=== PATIENT | female | born 1985 | race Caucasian/White ===

== ENCOUNTER 2021-09-23 09:30 | Outpatient (CLI) | payer OTHER, SELFPAY ==
[2021-09-23 10:04] LABS: Alanine Aminotransferase 11 U/L (6-35); Albumin Level 4.3 g/dL (3.5-5.1); Alkaline Phosphatase 44 U/L (38-126); Anion Gap 5 mmol/L (8-16); Aspartate Amino Transferase 19 U/L (14-36); Basophils Absolute Auto 0.1 K/mm3 (0.0-0.1); Bilirubin,Total 0.8 mg/dL (0.2-1.3); Blood Urea Nitrogen 10 mg/dL (7-17); Calcium 8.1 mg/dL (8.4-10.2); Carbon Dioxide 26 mmol/L (22-30); Chloride 106 mmol/L (98-107); Eosinophils Absolute Auto 0.1 K/mm3 (0-0.3); Eosinophils Percent Auto 2.3 % (0-4.4); Estimated Glomerular Filt Rate > 60; Glucose 93 mg/dL (65-110); Hematocrit 37.4 % (37.0-47.0); Hemoglobin 12.1 g/dL (12.0-15.0); Immature Granulocyte Absolute 0.02 K/mm3 (0.00-0.031); Immature Granulocyte Percent A 0.3 % (0-0.5); Lymphocytes Percent Auto 24.8 % (18.3-44.2); Mean Corpuscular HGB Conc 32.4 g/dl (32-36); Mean Corpuscular Volume 92.8 fl (80-100); Mean Platelet Volume 9.2 fl (7.4-10.4); Monocytes Absolute Auto 0.4 K/mm3 (0.1-0.6); Monocytes Percent Auto 7.3 % (2.6-8.5); Neutrophils Absolute Auto 3.9 K/mm3 (1.3-6.7); Neutrophils Percent Auto 64.3 % (45.5-73.1); Platelet Count Result 221 k/mm3 (150-375); Potassium 3.9 mmol/L (3.4-5.0); Red Blood Count 4.03 M/mm3 (4.2-5.4); Red Cell Distribution Width 13.5 % (11.5-14.5); Sodium 137 mmol/L (137-145)
[2021-09-23 10:33] LABS: Thyroid Stimulating Hormone 0.907 uIU/mL (0.465-4.680)
[2021-09-23 11:15] LABS: Folic Acid 19.2 ng/mL (2.76->20)
== END 2021-09-23 09:31 | disposition home or self-care (01) ==
LOC: ANHLAB 09:32
PROVIDERS: PCP Family Medicine; Visit Provider Family Medicine
DX: R00.2 Palpitations (principal)
CPT/HCPCS: 36415; 80053; 82607; 82746; 84443; 85025

== ENCOUNTER 2022-06-11 09:12 | Emergency (ER) | payer OTHER, SELFPAY ==
[2022-06-11 09:22] VITALS: BP 97/64; PULSE 111; RESP 16; TEMP 36.9; O2SAT 100
--- NOTE | 2022-06-11 09:28 | ED.URI ---
HPI - URI/Sore Throat General Chief Complaint: Upper Respiratory Infection Stated Complaint: SORE THROAT/FEVER/BODY ACHES Time Seen by Provider: 06/11/22 09:28 Source: patient Mode of arrival: ambulatory Limitations: no limitations History of Present Illness HPI Narrative: 36-year-old female presents with complaint of sore throat, headache, body aches, fatigue starting last night. Reports this morning her temperature was 102? F. patient take antipyretics prior to arrival. Denies nausea vomiting diarrhea. No chest pain or shortness of breath. All systems reviewed and negative except as noted above. Related Data Allergies Allergy/AdvReac Type Severity Reaction Status Date / Time azithromycin Allergy Mild rash Verified 09/23/21 08:17 Review of Systems Review of Systems: CONSTITUTIONAL: Reports fever, chills, or sweats. EYES: Denies visual changes, redness, or discharge. ENT: Denies rhinorrhea, congestion. Reports sore throat. Denies otalgia. CARDIOVASCULAR: Denies chest pain, palpitations, or edema. RESPIRATORY: Denies cough or dyspnea. GASTROINTESTINAL: Denies abdominal pain, nausea, vomiting, or diarrhea. GENITOURINARY: Denies dysuria or hematuria. SKIN: Denies rash or itching. MUSCULOSKELETAL: Denies back pain, joint pain. Reports myalgia. NEUROLOGIC: Denies headache, numbness, or weakness. PSYCHIATRIC: Denies anxiety or depression. All other systems reviewed are negative, except as documented in HPI. [facility] Family History Family History Mother Patient's mother is Social History Social History (Updated 09/23/21 @ 08:24 by Amber Whittington) Social History: Smoking status: Never smoker Second hand tobacco smoke exposure: No Alcohol intake: current Alcohol use details: rarely Substance use: never Substance use type: does not use Living arrangements: with family Occupation/Education: occupation Gender identity (if verbalized by the patient): Female Sexual Orientation (if Verbalized by the Patient): Straight or Heterosexual Comments At time of signature, agree with nursing past medical, surgical, social and family history. There is no relevant family history pertinent to the presenting complaint. Exam Narrative: GENERAL: This is a well-nourished, well-developed patient, in no apparent distress. HEAD: normocephalic, atraumatic. EYES: PERRL. Sclera clear/white. Vision is grossly intact. EARS: External ears normal, auditory canals clear and without drainage, TMs normal without perforation. Hearing grossly intact. NOSE: External nose normal with no obvious nasal discharge, nares without redness, no rhinorrhea. THROAT: Mucous membranes moist, erythema posterior pharynx. No exudates or tonsillar swelling. NECK: Neck supple, non-tender without lymphadenopathy, masses or thyromegaly. CARDIOVASCULAR: Regular rate and rhythm without murmurs, gallops, or rubs. RESPIRATORY: Clear to auscultation. Breath sounds equal bilaterally. No wheezes, rales, or rhonchi. SKIN: warm, Dry, intact with no suspicious lesions or rash, good texture and turgor. NEURO: awake, alert, and oriented to person, place and time. There were no obvious focal neurologic abnormalities. EXTREMITIES: No joint tenderness, effusion, or edema noted. Course Course Level of Care: Express Care Visit Vital Signs Vital signs: Vital Signs Temperature 36.9 C 06/11/22 09:22 Pulse Rate 111 H 06/11/22 09:22 Respiratory Rate 16 06/11/22 09:22 Blood Pressure 97/64 L 06/11/22 09:22 Pulse Oximetry 100 06/11/22 09:22 Temperature 36.9 C 06/11/22 09:22 Pulse Rate 111 H 06/11/22 09:22 Respiratory Rate 16 06/11/22 09:22 Blood Pressure 97/64 L 06/11/22 09:22 Pulse Oximetry 100 06/11/22 09:22 Reviewed MDM - URI/Sore Throat MDM Narrative Medical decision making narrative: Patient is aware of diagnosis, understands and agrees to
== END 2022-06-11 09:35 | disposition home or self-care (01) ==
PROVIDERS: Emergency Provider Nurse Practitioner Family; PCP Family Medicine
DX: J02.0 Streptococcal pharyngitis (principal)
CPT/HCPCS: 87880; 99213; G0463

== ENCOUNTER 2023-02-23 17:25 | Outpatient (CLI) | payer OTHER, SELFPAY ==
--- NOTE | ~2023-02-23 | XR_ITS ---
XR chest 2V DATE: 02/23/2023 17:37 INDICATION: Cough TECHNIQUE: PA and lateral views COMPARISON: May 18, 2012 two-view chest FINDINGS: Normal heart size. No hilar or mediastinal enlargement. No pulmonary infiltrate or consolid ation, pleural effusion or pulmonary vascular congestion or pneumothorax. IMPRESSION: Negative Reviewed, dictated and finalized at location L. HYSICAL PARTY CHIEF IMPRESSION: Negative
== END 2023-02-23 17:26 | disposition home or self-care (01) ==
PROVIDERS: PCP Family Medicine; Visit Provider Physician Assistant
DX: R05.9 Cough, unspecified (principal)
CPT/HCPCS: 71046

== ENCOUNTER 2024-06-06 09:17 | Emergency (ER) | payer BC, SELFPAY ==
[2024-06-06 09:29] VITALS: BP 99/73; PULSE 106; RESP 16; TEMP 36.9; O2SAT 98
--- NOTE | 2024-06-06 09:47 | ED_ITS ---
HPI - URI/Sore Throat General Chief Complaint: Upper Respiratory Infection Stated Complaint: Upper Respiratory Symptoms Source: patient and RN notes reviewed Mode of arrival: ambulatory Limitations: no limitations History of Present Illness HPI Narrative: [age] year presented for complaint malaise, low-grade fever, and nasal congestion, ear pain, for about 2 weeks. States that the onset she had a GI illness that lasted a few days with nausea vomiting diarrhea which is resolved. Taking DayQuil, Mucinex and Tylenol. Denies shortness of breath, wheezing, vomiting, diarrhea abdominal pain or lethargy. MD elicited complaint: cough Related Data Home Medications ?Medication ?Instructions ?Recorded ?Confirmed ?Last Taken ?Type fluorouracil 5 % topical cream applic topical 06/06/24 Unknown History Allergies Allergy/AdvReac Type Severity Reaction Status Date / Time azithromycin Allergy Mild rash Verified 06/06/24 09:48 Review of Systems Review of Systems: per [facility] Past Medical History Medical History (Updated 06/06/24 @ 09:56 by Tara Duggan, ELECTRIC MOTOR TESTER ASSEMBLER) Palpitations Cough Acute maxillary sinusitis Family History Family History Mother Patient's mother is Social History Social History (Updated 03/19/23 @ 08:16 by Amber Whittington) Social History: Smoking status: Never smoker Second hand tobacco smoke exposure: No Alcohol intake: current Alcohol use details: rarely Substance use: never Substance use type: does not use Lack of Transportation: No Lack of Food: Never True Current Housing: I Have Housing Concerned About Future Housing: No Difficulty Paying Gas/Electric Bills: No Difficulty Paying for Meds: No Currently Unemployed: No Education: Don't Know Difficulty w/ Childcare or Family Care: No Living arrangements: with family Occupation/Education: occupation Gender identity (if verbalized by the patient): Female Sexual Orientation (if Verbalized by the Patient): Straight or Heterosexual Exam Narrative: GENERAL: Ill-appearing, nontoxic no acute distress. EYES: PERRLA, conjunctivae clear ENT: Mucous membranes moist. TM pearly neves with dull light reflex bilaterally; no tragal tenderness. Oropharynx not erythematous without lesions or exudate, no drooling, no hoarseness, no trismus, uvula midline. No tripod positioning, muffled voice, soft palate or pharyngeal wall bulging NECK: Supple. No lymphadenopathy CHEST: Clear to auscultation, breath sounds equal. No wheezing, rhonchi, rales, or stridor. No respiratory distress, speaks in full sentences. HEART: Regular rate and rhythm. ABD: soft, flat, nontender SKIN: Warm, dry, no rash. NEURO: Alert and oriented x3. PSYCH: Normal mood and affect Course Course Emergency Course: Patient is aware of diagnosis, understands and agrees to treatment plan. Anticipatory guidance given. Patient agrees to follow-up as directed and is aware of reasons to seek care at the emergency department. Portions of this record may have been created with voice recognition software Level of Care: Express Care Visit Vital Signs Vital signs: Vital Signs Temperature 98.5 F 06/06/24 09:29 Pulse Rate 106 H 06/06/24 09:29 Respiratory Rate 16 06/06/24 09:29 Blood Pressure 99/73 L 06/06/24 09:29 Pulse Oximetry 98 06/06/24 09:29 Temperature 98.5 F 06/06/24 09:29 Pulse Rate 106 H 06/06/24 09:29 Respiratory Rate 16 06/06/24 09:29 Blood Pressure 99/73 L 06/06/24 09:29 Pulse Oximetry 98 06/06/24 09:29 reviewed MDM - URI/Sore Throat MDM Narrative Medical decision making narrative: Discussed physical exam findings. Advised supportive measures and signs/symptoms to go to the ER. Pt is appropriate for outpt treatment and f/u. Differential Diagnosis Differential diagnosis: Likely upper respiratory infection, otitis media, sinusitis, viral infection, bronchitis and pharyngitis Discharge Plan Discharge Clinical Impression: Upper respiratory infection Patient Disposition: Home, Self-Care Condition: Stable Instructions: Antibiotic Form, Upper Respiratory Infection (ED) Additional Instructions: Recommend Flonase spray and Zyrtec (or Claritin/Antonina) over the counter Cough syrup may cause drowsiness; avoid driving or take it at night time. Tylenol 1000mg every 8 hours as needed for pain Symptomatic treatment includes: rest, fluids, and increase humidity of the air at home. Follow up with your primary care provider in 1 week. Go to the ER for worsening symptoms or concerns. Patient Language: Frisian Prescriptions: New amoxicillin-pot clavulanate 875-125 mg tablet 1 tablet PO Q12H 7 Days Qty: 14 0RF No Action fluorouracil 5 % cream TOPICAL Flovent Diskus 50 mcg/actuation blister with device 2 inh inhalation Q12H Qty: 60 0RF Follow-up/Referrals: PHYSICIAN,MANAGER ANIMAL [Primary Care Provider] - Time of Disposition: 09:56
== END 2024-06-06 09:57 | disposition home or self-care (01) ==
PROVIDERS: Emergency Provider Nurse Practitioner Family
DX: J06.9 Acute upper respiratory infection, unspecified (principal)
CPT/HCPCS: 99213; G0463

== ENCOUNTER 2024-09-13 15:42 | Outpatient (CLI) | payer BC, SELFPAY ==
--- OUTSIDE RECORDS SUMMARY | 2024-09-13 15:46 | XMS_ITS | Clinical Summary ---
Author Organization [facility] Address [address] [place] [address] Care Team Providers Care Footwear Sales Leader Name Role Phone Miscellaneous, Not In File Primary Care Provider Unavailable Allergies No known active allergies Medications albuterol HFA (PROVENTIL HFA,VENTOLIN HFA) 90 mcg/actuation inhaler inhale 2 puff by inhalation route every 4 - 6 hours as needed 0 3 Active montelukast (SINGULAIR) 4 mg granules in packet 4 mg. 0 3 Active Additional Information Patient not taking.Reported on 08/22/2024 loratadine (CLARITIN) 5 mg/5 mL syrup take 10 milliliter (10MG) by oral route every day 0 3 Active levonorgestrel- ethinyl estrad (AVIANE) 0.1-20 mg-mcg per tablet take 1 tablet by oral route every day 0 3 Active Additional Information Patient not taking.Reported on 08/22/2024 folic acid (FOLVITE) 1 mg tablet take 1 tablet by oral route every day 90 9 7 Active Additional Information Patient not taking.Reported on 08/22/2024 enoxaparin (LOVENOX) 40 mg/0.4 mL syringe inject 0.4 milliliter by subcutaneous route every day 30 Syringe 5 7 Active Additional Information Patient not taking.Reported on 08/22/2024 Active Problems Problem Noted Date Diagnosed Date Cervico-occipital neuralgia 07/10/2016 Overview (07/17/2016): Occipital neuralgia Encounters Date Type Department Care Team Description 08/22/2024 6:45 PM CDT Office Visit [facility] at [address] [address] Tracee Snider NP Jaw pain, non-TMJ (Primary Dx) from Last 3 Months Family History Medical History Relation Name Comments Stroke Other Family history of Stroke; Relation Name Status Comments Other Social History Tobacco Use Types Packs/Day Years Used Date Smoking Tobacco: Never Assessed Alcohol Use Standard Drinks/Week Comments Yes 0 (1 standard drink = 0.6 oz pur e alcohol) Comments Unknown Sex and Gender Information Value Date Recorded Sex Assigned at Not on file Legal Sex Female 11:33 PM ELECTRICAL FOREMAN Gender Identity Not on file Sexual Orientation Not on file Obstetrics History Last Filed Vital Signs Vital Sign Reading Time Taken Comments Blood Pressure 105/73 08/22/2024 6:49 PM CDT Pulse 84 08/22/2024 6:49 PM CDT Temperature 36.8 C (98.2 F) 08/22/2024 6:49 PM CDT Respiratory Rate 16 08/22/2024 6:49 PM CDT Oxygen Saturation 99% 08/22/2024 6:4 9 PM CDT Inhaled Oxygen Concentration - - Weight 59 kg (130 lb) 08/22/2024 6:49 PM CDT Patient reports Height 172.7 cm (5' 8) 07/10/2016 1:51 PM CDT Body Mass Index 19.77 07/10/2016 1:51 PM CDT Plan of Treatment Health Maintenance Due Date Last Done Comments Cervical Cancer Screening 1985 Depression Screening 1985 Varicella Vaccines (1 of 2 - 13+ 2-dose series) 1998 Hepatitis B Screening 07/15/2003 Regular Well Visit/Exam 18-64 07/15/2003 Pneumococcal vaccine <65 (1 of 2 - PCV) 2004 Covid-19 Vaccine ( season) 2023 01/30/2021, 04/17/2020, 03/27/2020 DTaP/Tdap/Td Vaccine (3 - Td or Tdap) 06/13/2030 06/13/2020, 12/17/2016 Hepatitis C Screening Completed 04/01/2016 Influenza Vaccine Completed 01/05/2024, , 01/05/2022, Additional history exists HPV Vaccines Aged Out No longer eligi ble based on patient's age to complete this topic Procedures Procedure Name Priority Date/Time Associated Diagnosis Comments SERUM HEPATITIS C AB Routine 04/01/2016 3:01 PM ELECTRICAL FOREMAN from Last 3 Months or Most Recently Relevant to Health Maintenance Results * Serum Hepatitis C ab (04/01/2016 3:01 PM ELECTRICAL FOREMAN) HCV ab Non-Reacti ve Non-Reacti ve CDR HISTORICAL RESULTS Serum 04/01/2016 3:01 PM ELECTRICAL FOREMAN us Ruma Moore MD LAB BLOOD ORDERABLES F inal Result CDR HISTORICAL RESULTS from Last 3 Months or Most Recently Relevant to Health Maintenance Insurance [facility] [employer] Care Teams Footwear Sales Leader Relationship Specialty Start Date End Date Miscellaneous, Not In File PCP - General 08/25/16
--- OUTSIDE RECORDS SUMMARY | 2024-09-13 15:46 | XMS_ITS | Clinical Summary ---
Author Organization [facility] Address [address] [place] [address] Phone Care Team Providers Care Geomatics Professor Name Role Phone Tyra Bill MD Primary Care Provider [phone] Allergies No known active allergies Medications fluticasone propionate (FLONASE BOTH NOSTRIL) Administer 2 Sprays in each nostril daily. Active guaiFENesin (MUCINEX) 600 mg Extended Release Biphasic tablet Take 1 Tablet (600 mg) by mouth every 12 hours. 30 Tablet 07/17/2020 6:54 PM CDT 1 Active albuterol HFA 90 mcg inhaler Take 2 Puffs by inhalation every 6 hours as needed for Shortness of Breath. 18 Gram 1 07/17/2020 6:54 PM CDT 1 Active acetaminophen (TYLENOL) 325 mg tablet Take 2 Tablets (650 mg) by mouth every 6 hours as needed for Pain. 60 Tablet 08/20/2020 10:12 AM CDT 1 Active ibuprofen (MOTRIN) 600 mg tablet Take 1 Tablet (600 mg) by mouth every 6 hours as needed for pain secondary to inflammation. 60 Tablet 08/20/2020 10:12 AM CDT 1 Active Breast Pump DeviceIndicatio ns:Lactating mother Use as directed 1 Each 1 Active Active Problems Problem Noted Date Diagnosed Date Mirena IUD 02/05/22 02/05/2022 Mild intermittent asthma with acute exacerbation 07/16/2020 Heterozygous factor V Leiden mutation Resolved Problems Problem Noted Date Diagnosed Date Resolved Date Normal labor 08/18/2020 10/17/2020 5/9 Juwan - circ done, Factor V - Lovenox, Asthma 08/18/2020 10/17/2020 Normal intrauterine pregnanc y in third trimester 07/17/2020 08/08/2020 Threatened labor at term 02/12/201701/2018 MTHFR mutation 04/20/2019 Acute tracheobronchitis 07/0 11/2020 Immunizations Immunization Administration Dates Next Due (ADACEL/BOOSTRIX)(10 YR UP) TDAP VACCINE, 0.5ML, IM 06/13/2020,12/17/2016 (PFIZER)(12 YR UP) COVID-19 VACCINE - EMERGENCY USE AUTHORIZATION, MRNA, [id number](PF) 30 MCG/0.3 ML IM SUSP 04/17/2020,03/27/2020 INFLUENZA VACCINE QUADRIVALE NT 3 YR UP PF IM 01/11/2016,01/04/2015 Influenza Seasonal Unspecifi ed Formulation IM 01/05/2024,01/06/2023,01/05/2022,2020,12/19/2019,12/17/2018,12/31/2017,0 01/05/2017 Influenza Vaccine Quad Split 3+ Yrs Pf Im 01/14/2014 Family History Medical History Relation Name Comments Unknown Father COPD Maternal Grandfather Other Maternal Grandmother pulmona ry fibrosis Stroke Maternal Grandmother Aneurysm Mother Stroke Mother Blood Disorder Sister factor v Healthy Son 1 owens Healthy Son 2 Juwan Breast Cancer Neg Hx Colon Cancer Neg Hx Ovarian Cancer Neg Hx Relation Name Status Comments Father Maternal Grandfather Maternal Grandmother Mother Sister Alive Son 1 owens Alive Son 2 Juwan Alive Social History Tobacco Use Types Packs/Day Years Used Date Smoking Tobacco: Never Smokeless Tobacco: Never Tobacco Cessation:Counseling Given: Not Answered Alcohol Use Standard Drinks/Week Comments Yes 0 (1 standard drink = 0.6 oz pur e alcohol) on occasion Comments No Sex and Gender Information Value Date Recorded Sex Assigned at Not on file Legal Sex Female 12:08 PM CDT Gender Identity Not on file Sexual Orientation Not on file 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 Not on file Not on file Not on file Last Filed Vital Signs Vital Sign Reading Time Taken Comments Blood Pressure 103/65 02/23/2023 4:07 PM BUSINESS PROCESS SPECIALIST Pulse 88 02/23/2023 4:07 PM BUSINESS PROCESS SPECIALIST Temperature 36.9 C (98.4 F) 02/23/2023 12:59 PM BUSINESS PROCESS SPECIALIST Respiratory Rate 18 02/05/2022 9:37 AM CDT Oxygen Saturation 98% 02/23/2023 4:07 PM BUSINESS PROCESS SPECIALIST Inhaled Oxygen Concentration - - Weight 60.3 kg (133 lb) 02/23/2023 12:59 PM BUSINESS PROCESS SPECIALIST Height 172.7 cm (5' 8) 02/23/2023 12:59 PM BUSINESS PROCESS SPECIALIST Body Mass Index 20.22 02/23/2023 12:59 PM BUSINESS PROCESS SPECIALIST Plan of Treatment Health Maintenance Due Date Last Done Comments HEPATITIS B VACCINES (1 of 3 - 19+ 3-dose series) 2004 PAP SMEAR 10/18/2023 10/17/2020, 03/13, 04/01/2016 COVID-19 Vaccine ( season) 2023 04/17/2020, 03/27/2020 CERVICAL CANCER SCREENING 10/17/2025 HPV/Cotest (21-29) 10/17/2025 10/17/2020, 04/01/2016 HPV/Cotest (30-65) 10/17/2025 10/17/2020, 04/01/2016 DTAP/TDAP/TD VACCINES (3 - Td or Tdap) 06/13/2030 06/13/2020, 12/17/2016 INFLUENZA VACCINE Completed 01/05/2024, , 01/05/2022, Additional history exists HPV VACCINES Aged Out No longer eligi ble based on patient's age to complete this topic Procedures Procedure Name Priority Date/Time Associated Diagnosis Comments CERV/VAG CYTO AGE BASED SCREEN PAP Routine 10/17/2020 3:22 PM CDT Routine follow-up from Last 3 Months or Most Recently Relevant to Health Maintenance Results * CERV/VAG CYTO AGE BASED SCREEN PAP (10/17/2020 3:22 PM CDT) COMMENT (PAP): [facility] Comment: This order for age-based cervical cancer and STI screening follows ACOG guidelines(PB 168, 140, SMQ447). See individual assays for performing site location. CLINICAL INFORMATION [facility] Comment:Routine exam LAST MENSTRUAL PERIOD [facility] Comment:RECENT PREG PREV PAP: [facility] Comment:INFORMATION NOT PROV IDED PREV BX: [facility] Comment:INFORMATION NOT PROV IDED SOURCE [facility] Comment:Endocervix ADEQUACY: [facility] Comment: Satisfactory for evaluation. Endocervical/transformation zone component present. PAP INTERP [facility] Comment:Negative for intraep ithelial lesion or malignancy. COMMENT [facility] Comment: This Pap test has been evaluated with computer assisted technology. VAULT MANAGER: [facility] Comment: YQ, CT(ASCP) CT screening location: [place] [address] [place] [address] EXPLANATORY NOTE [facility] Comment: EXPLANATORY NOTE: The Pap is a screening test for cervical cancer. It is not a diagnostic test and is subject to false negative and false positive results. It is most reliable when a satisfactory sample, regularly obtained, is submitted with relevant clinical findings and history, and when the Pap result is evaluated along with historic and current clinical information. HPV E6/E7 Not Detected Not Detected [facility] Comment: Methodology: City Attorney-Mediated Amplification This assay detects E6/E7 viral messenger RNA (mRNA) from 14 high-risk HPV types (16,18,31,33,35,39,45,51,52,56,58,59,66,68). The analytical performance characteristics of this assay have been determined by [facility]. The modifications have not been cleared or approved by the FDA. This assay has been validated pursuant to the CLIA regulations and is used for clinical purposes. For additional information, please refer to http://education.Genius [employer]ends.Gradalis/faq/XPE232u4 (This link if provided for information/ educational purposes only.) Test Performed at: [facility] [address] [place] [address] Cameron Nava D.O., MPH SL Genital SWAB OF ENDOCERVIX / Unknown 10/17/2020 3:22 PM CDT 10/18/2020 3:09 AM CDT Amanda Maza DO PATHOLOGY/CYTOLOGY ORDERABLES Final Result [facility] [address] [place] [address] from Last 3 Months or Most Recently Relevant to Health Maintenance Insurance [facility] RX [employer] (INTERNAL) [facility] Internal Plans RX [employer] Express Advance Directives For more information, please contact: [phone] * Full Code (Latest Code Status on File) Date Activated Date Inactivated Comments 07/16/2020 5:01 PM 07/17/2020 8:58 PM * Full Code Date Activated Date Inactivated Comments 02/13/2017 7:34 AM 02/14/2017 5:48 PM * Full Code Date Activated Date Inactivated Comments 02/12/2017 5:09 PM 02/13/2017 4:36 AM Care Teams Geomatics Professor Relationship Specialty Start Date End Date Tyra Bill MD PCP - General Family Practice 02/04/17
--- OUTSIDE RECORDS SUMMARY | 2024-09-13 15:46 | XMS_ITS | Referral Summary ---
Author Organization [facility] Address [address] [place] [address] Care Team Providers Care System Consultant Name Role Phone Miscellaneous, Not In File Primary Care Provider Unavailable Encounters Date Type Department Care Team Description 08/22/2024 6:45 PM CDT Office Visit [facility] at [address] [address] Tracee Snider NP Jaw pain, non-TMJ (Primary Dx) from Last 3 Months Allergies No known active allergies Medications albuterol [...] Cervico-occipital neuralgia 07/10/2016 Overview (07/17/2016): Occipital neuralgia Social History Tobacco Use Types Packs/Day Years Used Date Smoking Tobacco: Never Assessed Alcohol Use Standard Drinks/Week Comments Yes 0 (1 standard drink = 0.6 oz pur e alcohol) Comments Unknown Sex and Gender Information Value Date Recorded Sex Assigned at Not on file Legal Sex Female 11:33 PM SHIPPING & RECEIVING LEAD Gender Identity Not on file Sexual Orientation Not on file Last Filed Vital Signs [...] 07/10/2016 1:51 PM CDT Plan of Treatment Not on file Procedures Procedure Name Priority Date/Time Associated Diagnosis Comments SERUM HEPATITIS C AB Routine 04/01/2016 3:01 PM SHIPPING & RECEIVING LEAD from Last 3 Months or Most Recently Relevant to Health Maintenance Results * Serum Hepatitis C ab (04/01/2016 3:01 PM SHIPPING & RECEIVING LEAD) HCV ab Non-Reacti ve Non-Reacti ve CDR HISTORICAL RESULTS Serum 04/01/2016 3:01 PM SHIPPING & RECEIVING LEAD us Ruma Moore MD LAB BLOOD ORDERABLES F inal Result CDR HISTORICAL RESULTS from Last 3 Months or Most Recently Relevant to Health Maintenance Insurance [facility] [employer] Care Teams System Consultant Relationship Specialty Start Date End Date Miscellaneous, Not In File PCP - General 08/25/16
--- OUTSIDE RECORDS SUMMARY | 2024-09-13 15:46 | XMS_ITS | Clinical Summary ---
Author Organization [facility] [employer] Address [address] [place] [address] Care Team Providers Care School Leader Name Role Phone Tyra Bill MD Primary Care Provider + Source Comments [facility] [employer],non-owned Affiliates and Associated Physician Practices is amultiple site organization consisting of ambulatory clinics and hospital sitesin [place], [place], [place] and [place]. This disclosure is being madepursuant to the Care Everywhere program and may not contain all information available regarding this patient. Last updated 17.[facility] [employer] Allergies No known active allergies Medications * Be aware that medications may not be up to date on this document. Alwaysverify current medications with the patient. No known medications Social History Tobacco Use Types Packs/Day Years Used Date Smoking Tobacco: Never Smokeless Tobacco: Never Comments Unknown Sex and Gender Information Value Date Recorded Sex Assigned at Not on file Legal Sex Female 6:32 PM [employer]PER[employer] Gender Identity Not on file Sexual Orientation Not on file Last Filed Vital Signs Vital Sign Reading Time Taken Comments Blood Pressure 92/58 05/05/2017 9:38 AM [employer] SUPERVISOR Pulse 83 05/05/2017 9:38 AM [employer] SUPERVISOR Temperature 36.7 C (98.1 F) 05/05/2017 9:38 AM [employer] SUPERVISOR Respiratory Rate 16 05/05/2017 9:38 AM [employer] SUPERVISOR Oxygen Saturation 99% 05/05/2017 9:38 AM [employer] SUPERVISOR Inhaled Oxygen Concentration - - Weight 54.4 kg (120 lb) 05/05/2017 9:38 AM [employer] SUPERVISOR Height 170.2 cm (5' 7) 05/05/2017 9:38 AM [employer] SUPERVISOR Body Mass Index 18.79 05/05/2017 9:38 AM [employer] SUPERVISOR Plan of Treatment Health Maintenance Due Date Last Done Comments HIV SCREENING 2000 HEPATITIS C SCREENING 07/10/2003 DTAP/TDAP/TD VACCINES (1 - Tdap) 2004 HEPATITIS B VACCINE (1 of 3 - 19+ 3-dose series) 2004 COVID-19 VACCINE (1 - 2023-2 5 season) 2023 DEPRESSION SCREENING 04/12/2024 INFLUENZA VACCINE (Season Ended) 2024 ZOSTER VACCINE (1 of 2) 07/15/2035 HIB VACCINE Aged Out No longer eligi ble based on patient's age to complete this topic HPV VACCINE Aged Out No longer eligi ble based on patient's age to complete this topic MENINGOCOCCAL (Group B) VACC INE SHARED DECISION-MAKING Aged Out No longer eligibl e based on patient's age to complete this topic MENINGOCOCCAL GROUPS A/C/Y/W VACCINE Aged Out No longer eligible b ased on patient's age to complete this topic PNEUMOCOCCAL VACCINE Aged Out No long er eligible based on patient's age to complete this topic Insurance [facility] Care Teams School Leader Relationship Specialty Start Date End Date Tyra Bill MD [address] [place] [address] PCP - General Family Medicine 05/05/17
[2024-09-13 16:37] LABS: Basophils Absolute Auto 0.1 K/mm3 (0.0-0.1); Basophils Percent Auto 1.1 % (0.2-1.2); Eosinophils Absolute Auto 0.1 K/mm3 (0-0.3); Eosinophils Percent Auto 1.8 % (0-4.4); Hematocrit 39.7 % (37.0-47.0); Hemoglobin 12.9 g/dL (12.0-15.0); Immature Granulocyte Absolute 0.03 K/mm3 (0.00-0.031); Immature Granulocyte Percent A 0.4 % (0-0.5); Lymphocytes Absolute Auto 1.73 K/mm3 (0.9-3.2); Lymphocytes Percent Auto 24.3 % (18.3-44.2); Mean Corpuscular HGB Conc 32.5 g/dl (32-36); Mean Corpuscular Hemoglobin 30.2 pg (26-34); Mean Platelet Volume 9.4 fl (7.4-10.4); Monocytes Absolute Auto 0.4 K/mm3 (0.1-0.6); Monocytes Percent Auto 5.1 % (2.6-8.5); Neutrophils Absolute Auto 4.8 K/mm3 (1.3-6.7); Neutrophils Percent Auto 67.3 % (45.5-73.1); Platelet Count Result 238 k/mm3 (150-375); Red Blood Count 4.27 M/mm3 (4.2-5.4); Red Cell Distribution Width 12.5 % (11.5-14.5); White Blood Count 7.1 K/mm3 (4.5-10.0)
[2024-09-13 16:55] LABS: Alanine Aminotransferase 14 U/L (6-35); Albumin Level 4.4 g/dL (3.5-5.1); Alkaline Phosphatase 35 U/L (38-126); Anion Gap 6 mmol/L (4-12); Aspartate Amino Transferase 26 U/L (14-36); Bilirubin,Total 0.8 mg/dL (0.2-1.3); Blood Urea Nitrogen 15 mg/dL (7-17); Calcium 9.8 mg/dL (8.4-10.2); Carbon Dioxide 29 mmol/L (22-30); Chloride 104 mmol/L (98-107); Estimated Glomerular Filt Rate > 60; Glucose 87 mg/dL (65-110); Potassium 3.9 mmol/L (3.4-5.0); Sodium 139 mmol/L (137-145); Total Protein 7.3 g/dL (6.3-8.2)
== END 2024-09-13 15:43 | disposition home or self-care (01) ==
LOC: ANHLAB 15:43
PROVIDERS: PCP Family Medicine; Visit Provider Student in an Organized Health Care Education/Training Program
DX: R59.1 Generalized enlarged lymph nodes (principal)
CPT/HCPCS: 36415; 80053; 85025